=== PATIENT | female | born 1995 | race Caucasian/White ===

== ENCOUNTER 2019-11-01 11:48 | Emergency (ER) | payer OTHER, SELFPAY ==
[2019-11-01 11:59] VITALS: BP 129/87; PULSE 79; RESP 16; TEMP 37.1; O2SAT 98; BMI 24.9
[2019-11-01 12:19] LABS: Urine Pregnancy, HCG Qual. Negative (Negative)
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
[2019-11-01 13:43] VITALS: BP 117/80; PULSE 71; RESP 16; TEMP 36.8; O2SAT 96
== END 2019-11-01 13:46 | disposition home or self-care (01) ==
PROVIDERS: Emergency Provider Family Medicine
DX: S13.9XXA Sprain of joints and ligaments of unspecified parts of neck, initial encounter (principal); V43.52XA Car driver injured in collision with other type car in traffic accident, initial encounter; Y92.414 Local residential or business street as the place of occurrence of the external cause; S40.012A Contusion of left shoulder, initial encounter; S70.02XA Contusion of left hip, initial encounter; S70.01XA Contusion of right hip, initial encounter; F17.210 Nicotine dependence, cigarettes, uncomplicated
CPT/HCPCS: 70450; 70486; 71046; 72125; 73060; 73502; 81025; 99282

== ENCOUNTER 2020-12-13 18:15 | Emergency (ER) | payer BC, SELFPAY ==
[2020-12-13 18:30] VITALS: BP 124/92; PULSE 91; RESP 19; TEMP 36.8; O2SAT 98; BMI 25.2
--- NOTE | 2020-12-13 18:41 | HMH.EDUTC ---
[facility] [place] Disposition Clinical Impression: UTI (urinary tract infection) Qualifiers: Urinary tract infection type: site unspecified Hematuria presence: without hematuria Qualified Code(s): N39.0 - Urinary tract infection, site not specified Disposition: Home, Self-Care Condition on Discharge: Good Instructions: Urinary Tract Infection Additional Instructions: Drink plenty of fluids. Take tylenol or ibuprofen for pain or fever. Take the medications as directed. Follow up with your regular doctor. Follow up with your records management manager doctor. GO TO THE ER FOR ANY WORSENING SYMPTOMS Prescriptions: cephALEXin [cephALEXin 500mg capsule*] 500 mg PO Q6H 5 Days #20 cap Transmission Status: Received by [id number] Miconazole Nitrate [Monistat 7] 1 applicatio VG DIRECTED #1 pack Transmission Status: Received by [id number] Referrals: Provider,Referral, [Primary Care Provider] - Time of Disposition: 19:13 Medical Decision Making - Medical Records Medical records reviewed: No: I reviewed the patient's medical records. - Jesús Inquiry Pt receiving controlled substance: No Vital Signs: 12/13/20 18:30 12/13/20 19:14 Temperature 98.3 F 98.3 F Temperature Source Oral Pulse Rate 91 H Pulse Rate [Right Brachial] 91 H Respiratory Rate 19 19 Blood Pressure 124/92 H Blood Pressure [Right Arm] 124/92 H Blood Pressure Mean [Right Arm] 102 Blood Pressure Source [Right Arm] Automatic Cuff Blood Pressure Position [Right Arm] Sitting 02 Sat by Pulse Oximetry 98 Oxygen Delivery Method Room Air - Lab Data Lab results reviewed: Yes: I reviewed the patient's lab results. Lab Results 12/13/20 18:40: Urine Color Yellow, Urine Appearance Clear, Urine pH 5.5, Ur Specific [place] 1.025, Urine Protein Negative, Urine Glucose (UA) Negative, Urine Ketones Negative, Urine Blood Negative, Urine Nitrate Negative, Urine Bilirubin Negative, Urine Urobilinogen 0.2, Ur Leukocyte Esterase 1+ A Orders (Tests/Meds): ORDERS Category Date Time Status Urine Culture Stat Micro 12/13/20 18:40 Received [facility] [place] HPI - General Stated complaint: possible UTI or yeast infection Time Seen by Provider: 12/13/20 18:41 - History of Present Illness Provider Complaint: She states that for the past 2 days she has had burning while urinating. She thinks that she has a uti. She is 18 weeks . She also thinks that she has a yeast infection. She denies any abdominal pain, vaginal bleeding or discharge. - Related Data Home Medications Medication Instructions Recorded Confirmed Aspirin [Aspirin 81mg chewable 81 mg PO DAILY 12/13/20 12/13/20 tab] Previous Rx's Medication Instructions Recorded Miconazole Nitrate [Monistat 7] 1 applicatio VG DIRECTED #1 pack 12/13/20 cephALEXin [cephALEXin 500mg 500 mg PO Q6H 5 Days #20 cap 12/13/20 capsule*] Allergies Allergy/AdvReac Type Severity Reaction Status Date / Time No Known Allergies Allergy Verified 05/03/19 17:16 [facility] History - Hepatitis A Screen Attestation statement:: This patient has been screened for Hepatitis A risk factors. I have reviewed the patient's past medical history: Yes Medical History: Reports:: Asthma, Depression Other Medical History: Reports: Other (bipolar disorder) Laterality Cases: Bilateral: Tonsillectomy Amputation: No Fractures: No - Social History Smoking Status: Current every day smoker Tobacco Type: cigarettes # Packs/Day (cigarettes): 0 Alcohol Intake: former Alcohol Intake Frequency:: holidays/special occasions only Occupational Status: other - Psychiatric History Pschychiatric History:: Reports:: Depression Family Hx:: Asthma, Diabetes, Coronary Artery Disease, Hypertension, Cancer Comment: depression ROS Obtained: Yes All systems reviewed & no additional complaints - Constitutional Constitutional: Denies chills, Denies poor appetite - Genitourinary Female Genitourinary: R
[2020-12-13 18:53] LABS: Apearance,Urine Clear (Clear); Bilirubin,Urine Negative (Negative); Blood, Urine Negative (Negative); Color,Urine Yellow (Yellow); Glucose,Urine (UA) Negative (Negative); Ketones,Urine Negative (Negative); PH,Urine 5.5 (5.0-8.5); Protein,Urine Negative (Negative); Specific Gravity, Urine 1.025 (1.005-1.030); UTC Leukocyte Esterase,Urine 1+ (Negative); UTC Nitrate,Urine Negative (Negative); Urobilinogen,Urine 0.2 EU/dl (0.2)
[2020-12-13 19:14] VITALS: BP 124/92; PULSE 91; RESP 19; TEMP 36.8; O2SAT 98
== END 2020-12-13 19:18 | disposition home or self-care (01) ==
PROVIDERS: Emergency Provider Nurse Practitioner Family
DX: O23.12 Infections of bladder in pregnancy, second trimester (principal); Z3A.18 18 weeks gestation of pregnancy; J45.909 Unspecified asthma, uncomplicated
CPT/HCPCS: 81003; 87086; 87088; 87186; 99202; G0463

== ENCOUNTER 2020-12-18 20:19 | Emergency (ER) | payer BC, SELFPAY ==
[2020-12-18 20:21] VITALS: BP 131/94; PULSE 79; RESP 18; TEMP 36.9; O2SAT 99; BMI 26.6
[2020-12-18 20:27] VITALS: BP 131/94; PULSE 68; RESP 18; TEMP 36.9; O2SAT 97; BMI 26.7
--- NOTE | 2020-12-18 20:48 | HMH.EDGENADL ---
ED Disposition Clinical Impression: Toothache Disposition: Home, Self-Care Condition on Discharge: Good Additional Instructions: Please follow-up with your dentist tomorrow as recommended by her dentist. Please use dental balls as needed for comfort. May continue to take Tylenol as needed for pain relief. Referrals: Provider,Referral, [Primary Care Provider] - - Critical Care Critical Care Time: No Attestation: On 12/18/20, the high probability of a clinically significant, sudden or life threatening deterioration of the following system(s) required my full and direct attention, intervention and personal management. The time I documented below is in addition to time spent performing reported procedures but includes the following listed in this critical care notation. Medical Decision Making - Medical Records Medical records reviewed: Yes: I reviewed the patient's medical records. - Jesús Inquiry Pt receiving controlled substance: No Vital Signs: 12/18/20 20:21 12/18/20 20:27 Temperature 98.4 F 98.4 F Temperature Source Oral Oral Pulse Rate 68 Pulse Rate [Right] 79 Respiratory Rate 18 18 Blood Pressure 131/94 H Blood Pressure [Right Arm] 131/94 H Blood Pressure Mean [Right Arm] 106 Blood Pressure Source Automatic Cuff Blood Pressure Source [Right Arm] Automatic Cuff Blood Pressure Position Sitting 02 Sat by Pulse Oximetry 99 97 Oxygen Delivery Method Room Air Room Air Orders (Tests/Meds): ED MEDICATIONS Generic Name Dose Route Start Last Admin Trade Name Freq PRN Reason Stop Dose Admin Benzocaine/Butamben/Tetracaine HCl 1 gm 12/18/20 21:02 12/18/20 21:03 Tetracaine/Benzocaine/Butamben 56 Gm Tyler TP 01/17/21 21:01 1 gm NEEDED PRN Administration Toothache Discontinued Medications Generic Name Dose Route Start Last Admin Trade Name Freq PRN Reason Stop Dose Admin Lidocaine HCl 15 ml 12/18/20 20:47 12/18/20 21:03 Lidocaine 2% Viscous Samina 15ml Udc PO 12/18/20 20:48 15 ml ONCE ONE Administration Medical Decision Narrative: Upon presentation, patient is hemodynamically stable and nontoxic appearing. Patient presents with dental pain after recent dental procedure. Ddx includes but is not limited to post procedure pain, facial cellulitis, facial abscess. On physical exam, patient does not have erythema or edema to the skin to suggest infection. A dental ball was applied for symptomatic management. Upon reassessment, patient states she feels better and she was discharged in stable condition. General Adult HPI - General Chief complaint: Dental/Oral Stated complaint: 18 WK Preg Dental Pain Time Seen by Provider: 12/18/20 20:45 Mode of Arrival: Family Vehicle Source of Information: Patient Limitations: No Limitations Description of Symptoms (Recalled from ER Triage Doc. by RN): Pt has dental work yesterday (12/17) to take out old fillings to Left upper molars, prior to placement of crowns. She is 18wk and reports she has gestational gingivitis. Pt denies any N/V/D, fever, or chills. She has been battling this pain for a few days but it has worsened this evening and she can't take it anymore. Pt has been using Extra stregnth Tylenol (last dose at 1600) and extra stregnth oragel without relief. Pt saw Dr. Torrez for the dental work, and tried to call/text him without any response. Pt's OBGYN is Dr. Galvez with [facility]. - History of Present Illness HPI narrative: Patient is a 25yo female at 18weeks gestation presenting with severe left molar pain after dental procedure. Pt has dental work yesterday (12/17) to take out old fillings to Left upper molars, prior to placement of crowns. She has gestational gingivitis. She has been battling this pain for a few days but it has worsened this evening and she can't take it anymore. Pt has been using Extra stregnth Tylenol (last dose at 1600) and extra stregnth oragel without relief.Pt denies
[2020-12-18 21:22] VITALS: BP 113/72; PULSE 68; RESP 16; TEMP 36.9; O2SAT 100
== END 2020-12-18 21:28 | disposition home or self-care (01) ==
PROVIDERS: Emergency Provider Emergency Medicine
DX: K05.00 Acute gingivitis, plaque induced (principal); J45.909 Unspecified asthma, uncomplicated; Z3A.18 18 weeks gestation of pregnancy
CPT/HCPCS: 99281

== ENCOUNTER → 2021-07-21 15:53 | Outpatient (CLI) | payer BC, SELFPAY ==
[2021-07-21 19:04] LABS: Basophils # 0.1 K/mm3 (0-0.2); Basophils % 1.6 % (0.1-2.0); Eosinophils % 0.8 % (0.1-12.0); Hematocrit 47.5 % (37.0-47.0); Hemoglobin 15.5 g/dL (12.2-16.2); Lymphocytes # 1.7 K/mm3 (0.7-4.5); Lymphocytes % 33.8 % (10-50); Mean Corpuscular HGB Conc 32.6 g/dL (31.8-35.4); Mean Corpuscular Hemoglobin 31.6 pg (27.0-31.2); Mean Corpuscular Volume 97.1 fl (81-99); Mean Platelet Volume 8.9 fl (7.4-10.4); Monocytes # 0.3 K/mm3 (0.1-1.0); Monocytes % 4.9 % (1.7-9.3); Platelet Count 301 K/mm3 (142-424); Red Blood Count 4.89 M/mm3 (4.20-5.40); Red Cell Distribution Width 13.2 % (11.5-17.5); White Blood Count 5.1 K/mm3 (4.8-10.8)
[2021-07-21 20:13] LABS: Alanine Aminotransferase 18 U/L (12-78); Albumin Level 5.1 g/dl (3.5-5.0); Albumin/Globulin Ratio 2.3 (1.1-1.8); Alkaline Phosphatase 105 U/L (38-126); Anion Gap 17.6 mEq/L (5-15); Aspartate Amino Transferase 23 U/L (14-36); Bilirubin,Total 0.2 mg/dl (0.2-1.3); Blood Urea Nitrogen 10 mg/dl (7-17); Carbon Dioxide 25 mmol/L (22.0-30.0); Chloride 100 mmol/L (98-107); Chol/HDL Ratio 3.1 (1-3.5); Cholesterol 191 mg/dl (140-200); Estimated Glomerular Filt Rate 100 ml/min (>60); GFR (African American) 121 ML/MIN (>60); Globulin 2.2 g/dL (1.3-3.2); Glucose 78 mg/dl (74-100); HDL Cholesterol 62 mg/dl (40-60); Potassium 4.6 mmoL/L (3.5-5.1); Sodium 138 mmol/L (136-145); Total Protein,Serum 7.3 g/dl (6.3-8.2); Triglycerides 119 mg/dl (30-150); VLDL Cholesterol 24 mg/dL (0-40)
[2021-07-21 20:24] LABS: Direct LDL Cholesterol 103.48 mg/dL (100-129)
[2021-07-21 20:32] LABS: 25-OH Vitamin D, Total 45.5 ng/mL (30-100)
[2021-07-21 20:44] LABS: Thyroid Stimulating Hormone 1.81 uIU/mL (0.465-4.68)
== END ==
PROVIDERS: Visit Provider Physician Assistant
DX: R01.1 Cardiac murmur, unspecified (principal); R42 Dizziness and giddiness; Z86.79 Personal history of other diseases of the circulatory system
CPT/HCPCS: 80053; 80061; 82306; 84439; 84443; 85025

== ENCOUNTER 2021-12-02 13:27 | Emergency (ER) | payer BC, SELFPAY ==
[2021-12-02 13:40] VITALS: BP 141/91; PULSE 84; RESP 19; TEMP 36.7; O2SAT 99; BMI 21.9
[2021-12-02 13:54] LABS: Strep Scrn Group A (Rapid) Negative (Negative)
--- NOTE | 2021-12-02 14:01 | HMH.EDUTC ---
[facility] [place] Clinical Impression: URI (upper respiratory infection) Qualifiers: URI type: unspecified URI Qualified Code(s): J06.9 - Acute upper respiratory infection, unspecified Disposition: Home, Self-Care Condition on Discharge: Good Instructions: Sore Throat, Sinusitis, DI for Sinusitis Additional Instructions: *Monitor Temp, Over the counter Motrin or Tylenol as directed/as needed Tylenol every 4 hours and Motrin every 6 hours (as long as your family doctor has told you that you can take it) for fever or pain. and straight to ER if unable to lower temp less than 101.0 after medication given *Warm salt water gargles may help to soothe the throat *Throat Lozenges *Warm fluids like tea with honey may help to soothe the throat *Sleep elevated *Humidifier/Vaporizer Your throat swab was sent for culture. Those results are typically sent to your primary care. Be sure to follow up in 2-3 days with your family doctor/primary care physician if no improvement so they can review those result and treat if necessary. If you don?t have a primary care doctor, I recommend you get one but in the mean time, you will have to return to a walk in clinic Follow up IMMEDIATELY for new or worsening symptoms or no Noticeable improvement over the next 48-72 hours. 911 for difficulty breathing or swallowing Prescriptions: Fluticasone Propionate [Flonase 50mcg nasal spray 16gm] 1 spr NS DAILY #1 each Transmission Status: Pending to [facility] Cefdinir [Omnicef 300mg Capsule] 300 mg PO BID #20 cap Transmission Status: Received by [id number] Referrals: Provider,Referral, [Primary Care Provider] - As needed Time of Disposition: 14:17 Medical Decision Making - Jesús Inquiry Pt receiving controlled substance: No Jesús was queried for this patient: No Vital Signs: 12/02/21 13:40 Temperature 98.1 F Temperature Source Oral Pulse Rate [Right Brachial] 84 Respiratory Rate 19 Blood Pressure [Right Arm] 141/91 H Blood Pressure Mean [Right Arm] 107 Blood Pressure Source [Right Arm] Automatic Cuff Blood Pressure Position [Right Arm] Sitting 02 Sat by Pulse Oximetry 99 Oxygen Delivery Method Room Air - Lab Data Lab results reviewed: Yes: I reviewed the patient's lab results. Lab Results 12/02/21 13:38: Group A Strep Rapid Negative Orders (Tests/Meds): ORDERS Category Date Time Status Strep Screen Confirmation Stat Micro 12/02/21 13:38 Received [facility] [place] HPI - General Stated complaint: sore throat, cough Time Seen by Provider: 12/02/21 14:01 Mode of Arrival: Ambulatory Source of Information: Patient Limitations: No Limitations Description of Symptoms (Recalled from Triage Doc. by RN): PATIENT C/O SORE THROAT, COUGH AND EAR PAIN X 3 DAYS HEENT Symptoms (Recalled from RN notes): Yes Resp Symptoms (Recalled from RN notes): Yes Skin Symptoms (Recalled from RN notes): No MS Symptoms (Recalled from RN notes): No Functional Status (Recalled from RN notes): WNL - History of Present Illness Provider Complaint: Patient states that she has been having sore throat, pain in her ears, sinus congestion and drainage States thats that today she was feeling worse so she came in to get checked - Related Data Home Medications Medication Instructions Recorded Confirmed buspirone 15 mg tablet 15 mg PO BID 07/21/21 07/21/21 Previous Rx's Medication Instructions Recorded Cefdinir [Omnicef 300mg Capsule] 300 mg PO BID #20 cap 12/02/21 Fluticasone Propionate [Flonase 1 spr NS DAILY #1 each 12/02/21 50mcg nasal spray 16gm] Allergies Allergy/AdvReac Type Severity Reaction Status Date / Time No Known Allergies Allergy Verified 07/21/21 11:21 - Worker's Comp Is this a Worker's Comp case?: No [facility] History - Hepatitis A Screen Attestation statement:: This patient has been screened for Hepatitis A risk factors. I have reviewed the patient's past medical history: Yes Medical H
[2021-12-02 14:32] VITALS: BP 141/91; PULSE 84; RESP 19; TEMP 36.7; O2SAT 99
== END 2021-12-02 14:37 | disposition home or self-care (01) ==
PROVIDERS: Emergency Provider Nurse Practitioner
DX: J06.9 Acute upper respiratory infection, unspecified (principal)
CPT/HCPCS: 87430; 99212; G0463

== ENCOUNTER → 2021-12-10 14:53 | Outpatient (CLI) | payer BC, SELFPAY ==
[2021-12-10 13:44] LABS: Adenovirus,PCR Not Detected (NotDetected); Bordetella Pertussis Not Detected (NotDetected); Chlamydophila Pneumoniae, PCR Not Detected (NotDetected); Coronavirus 229E Not Detected (NotDetected); Coronavirus NL63 Not Detected (NotDetected); Coronavirus OC43 Not Detected (NotDetected); Coronovirus HKU1,PCR Not Detected (NotDetected); Human Metapneumovirus Not Detected (NotDetected); Influenza A, PCR Not Detected (NotDetected); Influenza AH1, 2009 Not Detected (NotDetected); Influenza AH1, PCR Not Detected (NotDetected); Influenza AH3,PCR Not Detected (NotDetected); Influenza B, PCR Not Detected (NotDetected); Mycoplasma Pneumoniae, PCR Not Detected (NotDetected); Parainfluenza 1, PCR Not Detected (NotDetected); Parainfluenza 2, PCR Not Detected (NotDetected); Parainfluenza 3, PCR Not Detected (NotDetected); Parainfluenza 4, PCR Not Detected (NotDetected); Respiratory Syncytial Virus Not Detected (NotDetected); Rhinovirus/Enterovirus Not Detected (NotDetected)
== END ==
PROVIDERS: PCP Physician Assistant; Visit Provider Physician Assistant
DX: J02.9 Acute pharyngitis, unspecified (principal); R05.9 Cough, unspecified; Z86.16 Personal history of COVID-19
CPT/HCPCS: 87070; 87486; 87581; 87632; 87798

== ENCOUNTER → 2021-12-18 09:49 | Outpatient (CLI) | payer BC, SELFPAY ==
--- NOTE | 2021-12-18 09:50 | CA_ITS ---
APPROVED REPORT EXAM: Comprehensive 2D, Doppler, and color-flow Echocardiogram Director [employer]: Loraine Núñez, RCS, RVS Ht: 5 ft 8 in Wt: 123lbs BSA: 1.66 BP: 110/70 mmHg Indications: Hx-Covid, Hx- rheumatic fever in chiildhood, murmur 2D Dimensions IVSd 0.80 cm F: 0.6-1.0 LVEF (Visual) 63.40 % PWd 0.83 cm F: 0.6 - 1.0 LA Volume 26.10 mL LVDd 4.34 cm F: 3.9 - 5.3 LA Volume Index [id number] mL/m2 (M/F) 16-34 LVDs 2.86 cm F: 2.2 - 3.5 Aortic Root 2.85 cm F: 2.7 - 3.3 Left Atrium 2.13 cm F: 2.7 - 3.8 LVOT 2.00 cm (M/F) 1.5-2.5 M-Mode Dimensions LA Diam 2.65 cm (1.9-4.0) Ao Diam 2.74 cm (2.0-3.7) EPSs 0.25 cm LV Diastology E Decel Time 180.00 (160-240 msec) E/A Ratio 1.19 MED E' 9.30 (< 7 cm/sec) MED A' 6.80 cm/s E'/MED E' Ratio 6.59 (>14) LAT E' 11.50 (<10 cm/sec) LAT A' 8.20 cm/s E/LAT E' Ratio 5.33 (>14) Aortic Valve LVOT Max 111.00 (70-110 cm/s) LVOT VTI 18.89 cm AoV Peak Josh. 137.00 (50-130 cm/s) AO Peak GR. 7.50 mmHg AO Mean GR. 3.70 (<5 mmHg) AO VTI 21.94 (18-25 cm) KHUSHBU (VTI) 2.70 (2.5-4.5 cm2) Mitral Valve MV A Velocity 51.00 (40-130 cm/s) E/A Ratio 1.19 MV Decel. Time 180.00 (160-240 ms) Pulmonary Valve PV Peak Velocity 99.00 (50-150 cm/s) Tricuspid Valve TR P. Velocity 190.00 cm/s Left Ventricle Left atrium normal size, left ventricle is normal size, there is no concentric left ventricular hypertrophy, estimated ejection fraction 55% with no regional wall motion abnormality, diastolic parameters are within normal range. Right Ventricle Right atrium and right ventricle are normal size and contractility. Aortic Valve Aortic valve is grossly normal, there is no aortic stenosis or aortic insufficiency. Mitral Valve Mitral valve grossly normal, there is trace mitral regurgitation. Tricuspid Valve Tricuspid valve grossly normal, there is trace tricuspid regurgitation, tricuspid rotation jet velocity is inadequate for calculation of the right ventricular systolic pressure. Pulmonic Valve Pulmonic valve is poorly visualized. Great Vessels Aortic root is normal size. Inferior vena cava normal 7 normal inspiratory collapse. Pericardium No significant pericardial effusion noted. Conclusion 1. Normal left ventricular size, preserved left ventricular systolic function, estimated ejection fraction 55% with no regional wall motion abnormality, diastolic parameters are within normal range. 2. Trace mitral and tricuspid regurgitation. 3. No significant pericardial effusion. 4. Inferior vena cava normal 7 normal inspiratory collapse. Electronically signed by : Paolo Yancey MD 12/19/2021 15:20:55
== END ==
LOC: RT 09:50
PROVIDERS: PCP Physician Assistant; Visit Provider Physician Assistant
DX: R00.2 Palpitations (principal); Z86.79 Personal history of other diseases of the circulatory system; R06.00 Dyspnea, unspecified; R42 Dizziness and giddiness
CPT/HCPCS: 93306

== ENCOUNTER → 2021-12-22 15:18 | Outpatient (CLI) | payer BC, SELFPAY | LOC: RT 15:19 | PROVIDERS: PCP Physician Assistant; Visit Provider Physician Assistant | DX: R00.2 Palpitations (principal) | CPT/HCPCS: 93225; 93226 ==

== ENCOUNTER 2023-11-27 16:06 | Emergency (ER) | payer BC, SELFPAY ==
[2023-11-27 16:50] VITALS: BP 149/98; PULSE 89; RESP 18; TEMP 36.6; O2SAT 99; BMI 28.8
--- NOTE | 2023-11-27 16:55 | ED_ITS ---
Discharge Plan Disposition Patient Disposition: Home, Self-Care Condition: Good Prescriptions Prescriptions: New azithromycin [Zithromax] 250 mg tablet 250 mg PO UD DOSE PK Qty: 6 0RF Rx Instructions: Take two (2) tablets today, then one (1) tablet days #2 thru #5 acyclovir 5 % cream 1 applic topical Q4H 7 Days Qty: 5 0RF acyclovir 400 mg tablet 400 mg PO TID 7 Days Qty: 21 0RF No Action buspirone 15 mg tablet 15 mg PO BID 1 mg Tablet 1 tab PO DAILY Referrals Follow up/Referrals: Rosemary Kiran PA [Primary Care Provider] - See instructions Activity Restrictions/Add. Instructions Additional Instructions/Restrictions: Drink plenty of fluids. Take tylenol for pain or fever. Take the medications as directed. Follow up with your regular doctor. GO TO THE ER FOR ANY WORSENING SYMPTOMS Clinical Impressions Clinical Impression: Acute bronchitis, Fever blister Instructions Patient Instructions: Acyclovir Topical, Azithromycin Discharge ED Provider: Kevon Irene [facility] General Stated complaint: congestion,cold sores,cough Time Seen by Provider: 11/27/23 16:55 Related Data Home Medications Medication Instructions Recorded Confirmed buspirone 15 mg tablet 15 mg PO BID 07/21/21 11/27/23 [id number] 1 mg 1 tab PO DAILY 11/27/23 11/27/23 tablet Previous Rx's Medication Instructions Recorded acyclovir 5 % topical cream 1 applic topical Q4H 7 days #5 11/27/23 grams azithromycin 250 mg tablet 250 mg PO UD DOSE PK #6 tabs 11/27/23 (Zithromax) acyclovir 400 mg tablet 400 mg PO TID 7 days #21 tabs 11/28/23 Allergies Allergy/AdvReac Type Severity Reaction Status Date / Time No Known Allergies Allergy Verified 11/27/23 16:58 [facility] Disclaimer: The information contained in this section may have been updated after the p atient was seen, as this information can be updated by other users. Medical History (Updated 11/27/23 @ 17:38 by Kevon Irene APRN) History of rheumatic fever as a child Heart murmur anxiety Social History Smoking Status: Former smoker tobacco type: cigarettes packs per day: 0 alcohol intake: never current occupational status: other Travel in the last 8 weeks: Inside the [place] ROS Obtained: Yes All systems reviewed & no additional complaints except as documented Constitutional Constitutional: Reports chills and Reports fever(s) Eyes Eyes: Denies eye discharge ENT Ears, Nose, Mouth, and Throat: Reports as per HPI Cardiovascular Cardiovascular: Denies chest pain Respiratory Respiratory: Denies chest congestion and Reports cough Gastrointestinal Gastrointestingal: Reports nausea; Denies abdominal pain, constipation, cramping, diarrhea or vomiting Musculoskeletal Musculoskeletal: Denies arthralgias Integumentary/Breasts Skin/Breast: Denies rash Neurologic Neurologic: Denies paresthesias Physical Exam General General appearance: alert and in no apparent distress Eye Eye exam: Present normal appearance, PERRL and EOMI ENT ENT exam: Present mucous membranes moist and normal external ear exam Expanded ENT Exam External ear exam: Present normal external inspection TM/Canal exam: Bilateral TM: erythema and bulging Nose exam: Absent sinus tenderness Nasal speculum exam: Bilateral: normal Mouth exam: Present normal external inspection; Absent drooling Teeth exam: Present normal inspection Throat exam: Present tonsillar erythema and tonsillomegaly Neck Neck exam: Present normal inspection, full ROM and trachea midline; Absent tenderness, lymphadenopathy or thyromegaly Chest Chest inspection: Present normal inspection and symmetric chest wall rise; Abs ent tenderness or rash Respiratory Respiratory exam: Present normal lung sounds bilaterally; Absent respiratory distress, wheezes, stridor or accessory muscle use Cardiovascular Cardiovascular exam: Present regular rate, normal rhythm and normal heart sounds Abdominal Exam Abdominal exam: Present soft; Absent distention, tenderness, guarding, rebound or rigidity Extremities Exam Extremities exam: Present normal inspection, full ROM and normal capillary refill; Absent tenderness or calf tenderness Back Exam Back exam: Present normal inspection and full ROM; Absent tenderness Neurological Exam Neurological exam: Present alert and oriented X3 Psychiatric Psychiatric exam: Present normal affect and normal mood Skin Skin exam: Present warm, dry, intact and normal color Lymphatic Lymphatic Findings: no adenopathy Medical Decision Making Medical Records Medical records reviewed: No I reviewed the patient's medical records. Jesús Inquiry Pt receiving controlled substance: No
--- NOTE | 2023-11-27 17:44 | PC.NURSE ---
Sent full panel to lab via tube system
[2023-11-27 17:45] VITALS: BP 149/98; PULSE 89; RESP 18; TEMP 36.6; O2SAT 99
[2023-11-27 17:47] LABS: Adenovirus,PCR Not Detected (NotDetected); Bordetella Pertussis Not Detected (NotDetected); Chlamydophila Pneumoniae, PCR Not Detected (NotDetected); Coronavirus 19, PCR Not Detected (NotDetected); Coronavirus 229E Not Detected (NotDetected); Coronavirus NL63 Not Detected (NotDetected); Coronavirus OC43 Not Detected (NotDetected); Coronovirus HKU1,PCR Not Detected (NotDetected); Human Metapneumovirus Not Detected (NotDetected); Influenza A, PCR Not Detected (NotDetected); Influenza AH1, 2009 Not Detected (NotDetected); Influenza AH1, PCR Not Detected (NotDetected); Influenza AH3,PCR Not Detected (NotDetected); Influenza B, PCR Not Detected (NotDetected); Mycoplasma Pneumoniae, PCR Not Detected (NotDetected); Parainfluenza 1, PCR Not Detected (NotDetected); Parainfluenza 2, PCR Not Detected (NotDetected); Parainfluenza 3, PCR Not Detected (NotDetected); Parainfluenza 4, PCR Not Detected (NotDetected); Respiratory Syncytial Virus Not Detected (NotDetected)
[2023-11-27 20:49] LABS: Rhinovirus/Enterovirus Detected (NotDetected)
== END 2023-11-27 17:45 | disposition home or self-care (01) ==
PROVIDERS: Emergency Provider Nurse Practitioner Family; PCP Physician Assistant
DX: J20.9 Acute bronchitis, unspecified; B34.1 Enterovirus infection, unspecified; B00.1 Herpesviral vesicular dermatitis; R09.81 Nasal congestion
CPT/HCPCS: 87581; 87632; 87635; 87798; 99212; 99214; G0463

== ENCOUNTER 2024-02-01 16:59 | Outpatient (CLI) | payer BC, SELFPAY ==
[2024-02-01 16:56] LABS: Basophils # 0.1 K/mm3 (0-0.2); Basophils % 0.9 % (0.1-2.0); Eosinophils % 0.4 % (0.1-12.0); Hematocrit 44.4 % (37.0-47.0); Hemoglobin 15.4 g/dL (12.2-16.2); Lymphocytes # 1.9 K/mm3 (0.7-4.5); Lymphocytes % 34.7 % (10-50); Mean Corpuscular HGB Conc 34.6 g/dL (31.8-35.4); Mean Corpuscular Hemoglobin 32.4 pg (27.0-31.2); Mean Corpuscular Volume 93.6 fl (81-99); Mean Platelet Volume 8.1 fl (7.4-10.4); Monocytes # 0.3 K/mm3 (0.1-1.0); Monocytes % 5.4 % (1.7-9.3); Neutrophils # 3.1 K/mm3 (1.8-7.8); Neutrophils % 58.7 % (37.0-80.0); Platelet Count 305 K/mm3 (142-424); Red Blood Count 4.74 M/mm3 (4.20-5.40); Red Cell Distribution Width 13.5 % (11.5-17.5); White Blood Count 5.3 K/mm3 (4.8-10.8)
[2024-02-01 17:29] LABS: HCG Qualitative, Serum Negative (Negative)
[2024-02-01 17:38] LABS: Hemoglobin A1C 5.5 % (4.0-6.0)
[2024-02-01 17:43] LABS: Alanine Aminotransferase 18 U/L (12-78); Albumin Level 4.6 g/dl (3.5-5.0); Albumin/Globulin Ratio 1.8 (1.1-1.8); Alkaline Phosphatase 100 U/L (38-126); Aspartate Amino Transferase 22 U/L (14-36); Bilirubin,Total 0.4 mg/dl (0.2-1.3); Blood Urea Nitrogen 12 mg/dl (7-17); Calcium 9.9 mg/dl (8.4-10.2); Carbon Dioxide 25 mmol/L (22.0-30.0); Chloride 103 mmol/L (98-107); Chol/HDL Ratio 3.1 (1-3.5); Cholesterol 228 mg/dl (140-200); Estimated Glomerular Filt Rate 117 ml/min (>60); GFR (African American) 141 ML/MIN (>60); Globulin 2.6 g/dL (1.3-3.2); Glucose 84 mg/dl (74-100); HDL Cholesterol 73 mg/dl (40-60); Sodium 137 mmol/L (136-145); Total Protein,Serum 7.2 g/dl (6.3-8.2); Triglycerides 185 mg/dl (30-150); VLDL Cholesterol 37 mg/dL (0-40)
[2024-02-01 17:52] LABS: 25-OH Vitamin D, Total 46.6 ng/mL (30-100)
[2024-02-01 17:58] LABS: Free Thyroxine Index 2.1 ug/dL (5.93-13.13); T4 (Thyroxine) 7.4 ug/dl (5.53-11.0); Triiodothryronine (T3) Uptake 29 % (23.5-40.5)
[2024-02-01 18:12] LABS: Thyroid Stimulating Hormone 0.63 uIU/mL (0.465-4.68)
[2024-02-03 08:21] LABS: FSH 5.8 mIU/mL (.); LH 11.4 mIU/mL (.); Progesterone 0.1 ng/mL (.)
[2024-02-08 16:38] LABS: Estrogen 136 pg/mL (.)
== END 2024-02-01 23:59 | disposition home or self-care (01) ==
LOC: LAB.DROPOF 16:59
PROVIDERS: PCP Physician Assistant; Visit Provider Physician Assistant
DX: N91.2 Amenorrhea, unspecified; Z68.28 Body mass index [BMI] 28.0-28.9, adult
CPT/HCPCS: 80050; 80053; 80061; 82306; 82672; 83001; 83002; 83036; 84144; 84436; 84443; 84479; 84703; 85025

== ENCOUNTER 2024-03-02 16:47 | Outpatient (CLI) | payer BC, SELFPAY ==
[2024-03-03 17:30] LABS: Free Thyroxine Index 2.1 ug/dL (5.93-13.13); T4 (Thyroxine) 7.1 ug/dl (5.53-11.0); Triiodothryronine (T3) Uptake 29 % (23.5-40.5)
[2024-03-03 17:44] LABS: Thyroid Stimulating Hormone 0.73 uIU/mL (0.465-4.68)
[2024-03-05 06:54] LABS: Thyroid Peroxidase Antibodies <9 IU/mL (0-34)
[2024-03-08 06:21] LABS: Thyroid Stimulating Immunoglob <0.10 IU/L (0.00-0.55)
== END 2024-03-02 23:59 | disposition home or self-care (01) ==
LOC: LAB.DROPOF 03-03 16:48
PROVIDERS: PCP Physician Assistant; Visit Provider Physician Assistant
DX: R53.83 Other fatigue (principal)
CPT/HCPCS: 84436; 84443; 84445; 84479; 86376

== ENCOUNTER 2025-05-14 14:15 | Outpatient (CLI) | payer BC, SELFPAY ==
[2025-05-14 16:34] LABS: Thyroid Stimulating Hormone 0.81 uIU/mL (0.465-4.68)
== END 2025-05-14 23:59 | disposition home or self-care (01) ==
LOC: LAB 14:15
PROVIDERS: PCP Physician Assistant; Visit Provider Obstetrics & Gynecology
DX: N93.9 Abnormal uterine and vaginal bleeding, unspecified (principal)
CPT/HCPCS: 36415; 84443

== ENCOUNTER 2025-05-18 10:32 | Outpatient (CLI) | payer BC, SELFPAY ==
--- OUTSIDE RECORDS SUMMARY | 2024-09-30 16:30 | XMS_ITS ---
Author Organization Mercedes FOSTER PE D JOEL Address [address] [facility] [address] [facility] [address] [place] [address] Care Team Providers Care Vice President Network Development Name Role Phone Evens Batista Primary Care Provider McValeria Leigh Unavailable [phone] Evens Batista Unavailable Unavailable Migration, Provider Unavailable Unavailable [facility] Conversion Encounter Medications Medication SIG (Take, Route, Frequency, Duration) Notes Start Date End Date Status BUSPAR 10MG 1TAB QHS; Duration: 30DAYS *Please review for potential replacement for e-prescription and drug interaction check* Active ALBUTEROL (EQV-PROVENTIL HFA) 90 MCG/INH 2 PUFF(S) INHALED EVERY 6 HOURS; Duration: 30 DAY(S) *Please review for potential replacement for e-prescription and drug interaction check* 11/10/2021 Active Encounters Encounter Location Date Provider Diagnosis Mercedes BRUNO JOEL [address] [facility] [address] [facility] [address] [place] [address] 09/30/2024 Provider Migration Plan Of Treatment Medication Medication Name Sig Start Date Stop Date Notes ALBUTEROL (EQV-PROVENTIL HFA) 90 MCG/INH 2 PUFF(S) INHALED EVERY 6 HOURS; Duration: 30 DAY(S) 11/10/2021 *Please review for potential replacement for e-prescription and drug interaction check* Progress Notes * Tesha WINTERDOB:1995 (30 yo F)Acc No.[id number]:09/30/2024 Patient: Tesha ARANDA Provider: Vilma Coe :1995 A ge:29 Y S ex:Female Date:09/30/2024 Address:[facility] [address], [id number] Pcp:Evens Batista Subjective: * Chief Complaints: * 1 . [facility] To [facility] Conversion Encounter. * Medical History: * Medications: T aking BUSPAR 10MG 1TAB QHS , Notes to Pharmacist: *Please review for potential replacement for e-prescription and drug interaction check* Objective: * Vitals: Assessment: Plan: * Treatment: * * Electronic signature of Prov ider Migration on 05/18/2025 at 10:33 AM EST Sign off status: Pending * Provider: Vilma Coe Date: 0 09/30/2024 Generated for Tan olguin/Leanna/Naresh on: 1 07/18/2024 10:33 AM EST
--- NOTE | 2025-05-18 10:30 | US_ITS ---
PROCEDURE: US TRANSVAGINAL CLINICAL INDICATION: AUB and pelvic pain COMPARISON: No exams were available for comparison FINDINGS: Transvaginal sonographic images of the pelvis were obtained. UTERUS: 9.9 cm x 6cmx 5cm anteverted with a combined endometrial thickness of 6.7mm. There appears to be increased vascularity around the periphery of the fundus of the uterus. LEFT OVARY: 2dxc2doe6.6cm with a volume of 15.5ml. There are multiple small peripheral follicles giving the ovary a polycystic appearance. RIGHT OVARY: 5cmx 5pht4qt with a volume of 33.2ml. There are multiple small peripheral follicles giving the ovary a polycystic appearance. There is a 2.1 cm collapsing follicle that is likely a corpus luteum Both ovaries are seen and appear polycystic. Doppler flow to both ovaries are seen. There is no fluid in the cul-de-sac. IMPRESSION: 1. Anteverted, bulky uterus. The endometrium appears normal. There is increased vascularity around the periphery of the uterus. 2. Both ovaries are seen and are polycystic. There is a corpus luteum in the right ovary. 3. No fluid in cul-de-sac. Dictated by: Karlos Scott MD 05/19/2025 07:43 Karlos Sctot MD in OV 05/19/2025 07:43
--- OUTSIDE RECORDS SUMMARY | 2025-05-18 10:34 | XMS_ITS | Patient Health Record ---
Author Organization Mercedes FOSTER PE D JOEL Address [address] [place] [address] [facility] [address] [place] [address] Care Team Providers Care Gritting Machine Operator Name Role Phone Evens Batista Primary Care Provider [phone] McNeKalyani sandhui Unavailable [phone] Evens Batista Unavailable Unavailable Migration, Provider Unavailable Unavailable Allergies No Known Allergies Reason For Referral No Information Medications Medication SIG (Take, Route, Frequency, Duration) Notes Start Date End Date Status BUSPAR 10MG 1TAB QHS; Duration: 30DAYS *Please review for potential replacement for e-prescription and drug interaction check* Active ALBUTEROL (EQV-PROVENTIL HFA) 90 MCG/INH 2 PUFF(S) INHALED EVERY 6 HOURS; Duration: 30 DAY(S) *Please review for potential replacement for e-prescription and drug interaction check* 11/10/2021 Active Social History Tobacco Use: Social History Observation Description Date Details (start date - stop date) Former Smoker NA - NA Smoking: Question Answer Notes Are you a: former smoker How long has it been since you last smoked? 1-5 years Encounters Encounter Location Date Provider Diagnosis Mercedes FOSTER PED JOEL [address] [facility] [address] [place] [address] 09/30/2024 Provider Migration Plan Of Treatment No Information Insurance Providers Payer Name Payer Address Payer Phone Subscriber Number Group Number Insured Name Patient Relationship to Insured Coverage Start Date [facility]age End Date [facility] [id number] [place] [id number] Tesha Hampton Self - patient is the insured Medical (General) History Medical History History ICD Code Anxiety Bi Polar Surgical History Surgery Date(Month/Year) Tonsillectomy 2002 Hospitalization History Reason Date(Month/Year) Childbirth x 3
--- OUTSIDE RECORDS SUMMARY | 2025-05-18 10:34 | XMS_ITS | Clinical Summary ---
Author Organization [facility] Address [address] [place] [address] Care Team Providers Care Casting Supervisor Name Role Phone Rosemary Kiran Primary Care Provider [phone] Allergies No known active allergies Medications busPIRone (Buspar) 15 MG tablet 02/01/2022 Active Vit-Fe Fumarate-FA (Classic ) 28-0.8 MG tablet Take 1 tablet by mouth 1 (one) time each day. Active Lysine 500 MG capsule Active sertraline (Zoloft) 50 MG tablet Take 1 tablet (50 mg) by mouth every night. 02/19/2023 Active Active Problems Problem Noted Date Diagnosed Date Polyhydramnios, antepartum complication 02/10/20 23 Supervision of high risk , antepartum 0 01/20/2023 Gestational diabetes mellitu s (GDM) in third trimester controlled on oral hypoglycemic drug 12/25/2022 BMI 32.0-32.9,adult 11/30/2022 History of hypertension 09/02/2022 History of pre-eclampsia in prior , currently 07/21/2022 Supervision of other normal , antepartu m 07/21/2022 Resolved Problems Problem Noted Date Diagnosed Date Resolved Date Rubella non-immune status, antepartum 07/27/2022 04/01/2025 Immunizations Immunization Administration Dates Next Due Tdap 02/09/2023 Family History Medical History Relation Name Comments Drug abuse Brother 1 Bipolar disorder Brother 2 No Known Problems Daughter 1 No Known Problems Daughter 2 Alcohol abuse Father Conversions - Other Father cardiova scular disease Heart attack Father Hypertension Father No Known Problems Father's Brother No Known Problems Father's Sister Heart failure Maternal Grandfather Atrial fibrillation Maternal Grandmother Depression Maternal Grandmother Hypertension Maternal Grandmother Heart disease Mother Hypertension Mother Endometriosis Mother's Sister Polycystic ovary syndrome Mother's Sister Conversions - Other Paternal Grandfather cardiovascular disease Heart attack Paternal Grandfather Breast cancer Paternal Grandmother No Known Problems Son 1 No Known Problems Son 2 Relation Name Status Comments Brother 1 Alive Brother 2 Alive Daughter 1 Alive Daughter 2 Alive Father Alive Father's Brother Alive Father's Sister Alive Maternal Grandfather Maternal Grandmother Alive Mother Alive Mother's Sister Alive Paternal Grandfather Paternal Grandmother Alive Son 1 Alive Son 2 Alive Social History Tobacco Use Types Packs/Day Years Used Date Smoking Tobacco: Former Cigarettes 0.5 10 0 08/2010 - 08/2020 Smokeless Tobacco: Former Quit: 08/2020 Tobacco Cessation:Counseling Given: Not Answered Comments:Vape Alcohol Use Standard Drinks/Week Comments Not Currently 0 (1 standard drink = 0.6 oz pur e alcohol) 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 Never 03/28/2023 PHQ-2A Answer Date Recorded Patient Health Questionnaire-2 Score 0 02/15/2023 Comments No Sex and Gender Information Value Date Recorded Sex Assigned at Not on file Legal Sex Female 8:58 PM EDT Gender Identity Not on file Sexual Orientation Not on file Last Filed Vital Signs Vital Sign Reading Time Taken Comments Blood Pressure 115/82 03/03/2023 11:10 AM EDT Pulse 79 03/03/2023 11:10 AM EDT Temperature 36.9 C (98.4 F) 03/03/2023 11:10 AM EDT Respiratory Rate 16 03/03/2023 11:10 AM EDT Oxygen Saturation 97% 03/03/2023 11:10 AM EDT Inhaled Oxygen Concentration - - Weight 75.9 kg (167 lb 5.3 oz) 03/03/2023 11:10 AM EDT Height 162.6 cm (5' 4 ) 03/03/2023 11:10 AM EDT Body Mass Index 28.72 03/03/2023 11:10 AM EDT Plan of Treatment Health Maintenance Due Date Last Done Comments [facility]-Infant/Child/Adol SDOH Screenings 1993 [facility]-Varicella Vaccines (1 of 2 - 13+ 2-dose series) 2006 [facility]- SDOH Screenings 2011 [facility]-Adult SDOH Screenings 2011 [facility]-Hepatitis B Vaccines (1 of 3 - 19+ 3-dose series) 01/09/2012 [facility]-Pneumococcal Vaccine: Pediatrics (0 to 5 Years) and At-Risk Patients (6 to 49 Years) (1 of 2 - PCV) 01/09/2012 HPV Vaccines (1 - 3-dose SCD M series) 01/09/2020 [facility]-Depression Screening 03/28/2024 023, 02/15/2023 [id number]-KHTAV-23 Vaccine (1 - season) 2025 [facility]-Influenza Vaccine (#1) 2025 04/29/2017 [facility]-Pap Smear 03/31/2026 03/31/2023 [facility]-Cervical Cancer Screening 04/12/2028 [facility]-HPV/Cotest 04/12/2028 04/12/2023, 03/31/2023 [facility]-DTaP,Tdap,and Td Vaccine s (2 - Td or Tdap) 02/09/2033 02/09/2023 [facility]-Zoster Vaccines (1 of 2) 2043 [facility]-Obesity Intervention Completed 07/08/2022 [facility]-HIV Screening Completed 07/21/2022 [facility]-Hepatitis C Screening Completed 2022, 10/15/2020 [facility]-HIB Vaccines Aged Out No longer e ligible based on patient's age to complete this topic [facility]-Hepatitis A Vaccines Aged Out No longer eligible based on patient's age to complete this topic [facility]-IPV Vaccines Aged Out No longer e ligible based on patient's age to complete this topic [facility]-Rotavirus Vaccines Aged Out No lo nger eligible based on patient's age to complete this topic Goals Goal Patient Goal Type Associated Problems Recent Progress Patient-Stated? Author Delayed Delivery Care Plan CPM S22 PP LABOR (OBSTETRICS) No Open Scheduling, Background Procedures Procedure Name Priority Date/Time Associated Diagnosis Comments HIGH RISK HUMAN PAPILLOMAVIRUS (HPV) PCR WITH GENOTYPING WITH REFLEX TO PAP Routine 04/12/2023 8:04 AM EDT Encounter for gynecological examination (general) (routine) without abnormal findings PAP TEST - CYTOLOGY Routine 03/31/2023 1 2:07 PM EDT Encounter for gynecological examination (general) (routine) without abnormal findings HEPATITIS C ANTIBODY W/REFLEX TO HCV QUANT PCR Routine 07/21/2022 11:12 AM EST test positive Missed periods HIV 1/2 ANTIBODY/ANTIGEN SCREEN WITH REFLEX TO HIV I/II DIFFERENTIATION Routine 07/21/2022 11:12 AM EST test positive Missed periods from Last 3 Months or Most Recently Relevant to Health Maintenance Results * High Risk Human Papillomavirus (HPV) PCR with Genotyping (04/12/2023 8:04 AM EDT) High Risk Human Papillomavirus (HPV) PCR Interpretation Not Detected Not Detected 04/13/2023 9:40 AM EDT [facility] High Risk Human Papillomavirus (HPV) PCR Genotype 16 Not Detected Not Detected 04/13/2023 9:40 AM EDT [facility] High Risk Human Papillomavirus (HPV) PCR Genotype 18 Result Not Detected Not Detected 04/13/2023 9:40 AM EDT [facility] (HPV) Other High Risk HPV Genotypes (Not 16 or 18) Not Detected Not Detected 04/13/2023 9:40 AM EDT [facility] Thin Prep Cervix uteri structure / Unknown 04/12/2023 8:04 AM EDT 04/12/2023 8:04 AM EDT [facility] - 04/13/2023 9:40 AM EDT This test is performed by the Daly 4800 instrument Real Time PCR HPV DNA and genotype testing. This test is FDA approved for use with cervical and endocervical specimens. This test is used for clinical purposes. It should not be regarded as investigational or for research. The test specifically identifies HPV-16 and HPV-18 while concurrently detecting the rest of the high risk types (31, 33, 35, 39, 45, 51, 52, 56, 58, 59, 66 and 68). The [facility] Clinical Microbiology Laboratory is certified under the Clinical Laboratory Improvement Amendments of 1988 (CLIA-88) as qualified to perform high complexity clinical laboratory testing. Pauline Escalante APRN, CNM LAB MICROBIOLOGY - GENERAL ORDERABLES Final Result [facility] [address] [place] [id number] * Pap Test (03/31/2023 12:07 PM EDT) Case Report Cytology Case: [id number] Authorizing Provider: Pauline Escalante APRN, Collected: 03/31/2023 1207 CNM Ordering Location: Obstetrics & Gynecology Received: 04/01/2023 0934 First Screen: Brooke Charles Specimen: ThinPrep Pap Test, Liquid-Based Cervical/Vaginal 04/06/2023 10:52 AM EDT [facility] Interpretation NEGATIVE FOR INTRAEPITHELIAL LESION OR MALIGNANCY 04/06/2023 10:52 AM EDT [facility] at 1052 EDT Specimen Adequacy Satisfactory for evaluation; endocervical/gustafson sformation zone component present. Slide imaged by the ThinPrep Imaging system and selected 22 verma reviewed then full manual screening. 04/06/2023 10:52 AM EDT [facility] Cervical cytology is a screening test primarily for squamous cancers and precursors and has associated false negative and positive results. New technologies such as liquid based sampling may decrease but will not eliminate all false negative results. Regular screening and follow-up of unexplained clinical signs and symptoms are recommended to minimize false negative results. Please see the ASCCP website (www.asccp.org)fo r followup recommendations. If HPV testing was requested, correlation with the results is suggested (please call Microbiology at [phone] for results). 04/06/2023 10:52 AM EDT [facility] Menstrual Status Post- 023 10:52 AM EDT [facility] Contraceptive History Not Applicable 04/06/2023 10:52 AM EDT [facility] Screening Type Routine Screen 2022 10:52 AM EDT [facility] High Risk? No 04/06/2023 10:52 AM EDT [facility] HPV Testing Requested? Request HPV Testing if ASCUS (Women 25 Years or Older) 04/06/2023 10:52 AM EDT [facility] Previous Cancer History No 04/06/2023 10:52 AM EDT [facility] Clinical Information Z39.2 - Routine follow-up [ICD-10-CM] 04/06/2023 10:52 AM EDT [facility] Swab Vaginal and cervical cytologic material / Unknown Non-blood Collection / Unknown 03/31/2023 12:07 PM EDT 04/01/2023 9:34 AM EDT Pauline Escalante APRN, CNM LAB CYTOLOGY ORDERA BLES Final Result Performing Organization Address [facility] Phone Number [facility] [address] [place] [address] * HIV 1 & 2 Antibody/Antigen Screen (07/21/2022 11:12 AM EST) HIV 1 & 2 Antibody/Anti gen Screen Nonreactive Nonreactive 07/21/2022 3:00 PM EST [facility] Blood Venous blood specimen / Unknown Venipuncture / Unknown 07/21/2022 11:12 AM EST 07/21/2022 2:06 PM EST Pauline Escalante APRN, CNM LAB BLOOD ORDERABLE S Final Result Performing Organization Address [facility] Co de Phone Number [facility] [address] [place] [address] * Hepatitis C Antibody (07/21/2022 11:12 AM EST) Hepatitis C Antibody Negative Negative 07/21/2022 2:47 PM EST [facility] Blood Venous blood specimen / Unknown Venipuncture / Unknown 07/21/2022 11:12 AM EST 07/21/2022 2:05 PM EST Pauline Escalante APRN, CNM LAB BLOOD ORDERABLE S Final Result [facility] [address] [place] [address] from Last 3 Months or Most Recently Relevant to Health Maintenance Additional Health Concerns Active Problems Noted Date Diagnosed Date CPM S22 PP LABOR (OBSTETRICS) 07/21/[address]22 [place] [address] ANTHEM Care Teams Casting Supervisor Relationship Specialty Start Date End Date Rosemary Kiran PA [address] [place] [address] PCP - General 09/02/22
--- OUTSIDE RECORDS SUMMARY | 2025-05-18 10:34 | XMS_ITS | Clinical Summary ---
Author Organization [facility] Address [address] [place] [address] Care Team Providers Care Technical Advisor Name Role Phone Provider, No Known Primary Care Provider Unavail able Allergies No known active allergies Medications vitamin (, CLASSIC, vitamin) tablet Take 1 tablet by mouth Daily. Active Lysine 1000 MG tablet Take 1 tablet by mouth Daily. Active busPIRone (BUSPAR) 10 MG tablet Take 10 mg by mouth 2 (two) times a day. Active ibuprofen (ADVIL,MOTRIN) 600 MG tablet Take 1 tablet by mouth Every 6 (Six) Hours As Needed for Mild Pain or Moderate Pain . 60 tablet 05/15/2021 12:14 PM EST 05/15/2021 Active busPIRone (BUSPAR) 15 MG tablet 07/07/2021 Active Active Problems Problem Noted Date Diagnosed Date Papanicolaou smear 07/09/2021 Family planning 07/09/2021 exam 07/09/2021 05/13/2021 Bipolar disease during , antepartum Overview (10/08/2020): curreently in remission off medication with on-going psychotherapy Alcoholism in remission 10/08/2020 Hx of preeclampsia, prior , currently p regnant 10/08/2020 38 weeks gestation of 10/08/2020 Immunizations Immunization Administration Dates Next Due MMR 05/15/2021() Family History Medical History Relation Name Comments Heart attack Father Hypertension Mother Breast cancer Paternal Grandmother Relation Name Status Comments Father Alive Mother Alive Paternal Grandmother Social History Tobacco Use Types Packs/Day Years Used Date Smoking Tobacco: Former Cigarettes Q uit: 09/07/2020 Smokeless Tobacco: Never Comments:quit recently Alcohol Use Standard Drinks/Week Comments Not Currently 0 (1 standard drink = 0.6 oz pur e alcohol) sober 2 years-2018 [place] Depression Scale Answer Date Recorded [place] Depression Scale Total 5 05/13/2021 The thought of harming myself has occurred to me . Never 05/13/2021 Abuse Screen Answer Date Recorded Unsafe at Home or Work/School Not on file Feels Threatened by Someone? Not on file 05/2023 Does Anyone Keep You from Co ntacting Others or Doint Things Outside the Home? Not on file 04/08/2023 Physical Sign of Abuse Present Not on file 1 Housing Stability Answer Date Recorded Current Living Arrangements Not on file 03/28 Potentially Unsafe Housing Conditions Not on niharika e 04/08/2023 Family and Community Support Answer Edgar e Recorded Help with Day-to-Day Activities Not on file 04/08/2023 Lonely or Isolated Not on file 04/08/2023 Employment Answer Date Recorded Do you want help finding or keeping work or a darrick b? Not on file 04/08/2023 Disabilities Answer Date Recorded Concentrating, Remembering, or Making Decisions Difficulty Not on file 04/08/2023 Doing Errands Independently Difficulty Not on fi le 04/08/2023 Education Answer Date Recorded Help with school or training? Not on file Preferred Language Not on file 04/08/2023 Comments No Sex and Gender Information Value Date Recorded Sex Assigned at Not on file Legal Sex Female 8:34 AM EDT Gender Identity Not on file Sexual Orientation Not on file Last Filed Vital Signs Vital Sign Reading Time Taken Comments Blood Pressure 126/87 05/15/2021 7:00 AM EST Pulse 68 05/15/2021 7:00 AM EST Temperature 36.8 C (98.2 F) 05/15/2021 7:00 AM EST Respiratory Rate 18 05/15/2021 7:00 AM EST Oxygen Saturation - - Inhaled Oxygen Concentration - - Weight 73.9 kg (163 lb) 07/09/2021 11:07 AM EST Height 162.6 cm (5' 4 ) 07/09/2021 11:07 AM EST Body Mass Index 27.98 07/09/2021 11:07 AM EST Plan of Treatment Health Maintenance Due Date Last Done Comments Annual Gynecologic Pelvic an d Breast Exam 1993 TDAP/TD VACCINES (1 - Tdap) 01/09/2012 ANNUAL PHYSICAL 10/02/2020 INFLUENZA VACCINE 01/26/2025 HEPATITIS C SCREENING Completed 10/15/2020 Pneumococcal Vaccine 0-49 Aged Out No longer eligible based on patient's age to complete this topic Procedures Procedure Name Priority Date/Time Associated Diagnosis Comments HEPATITIS C ANTIBODY Routine 10/15/2020 10:45 AM EDT Supervision of high risk , antepartum from Last 3 Months or Most Recently Relevant to Health Maintenance Results * Hepatitis C Antibody (10/15/2020 10:45 AM EDT) Hepatitis C Ab Non-Reacti ve Non-Reacti ve 10/15/2020 3:00 PM EDT [facility] Blood Venipuncture / Unknown 10/15/2020 10:45 AM EDT 10/15/2020 10:45 AM EDT Narrative [facility] - 10/15/2020 3:00 PM EDT Results may be falsely decreased if patient taking Biotin. Nathanael Galvez MD LAB BLOOD ORDERABLES Final Result [facility]
[address] [place] [address], from Last 3 Months or Most Recently Relevant to Health Maintenance Insurance [facility] PPO Advance Directives * CPR (Attempt to Resuscitate) (Latest Code Status on File) Date Activated Date Inactivated Comments 05/13/2021 3:45 PM 05/15/2021 2:10 PM Question Answer Comments Code Status (Patient has no pulse and is not breathing): CPR (Attempt to Resuscitate) Medical Interventions (Patie nt has pulse or is breathing): Full Care Teams Technical Advisor Relationship Specialty Start Date End Date Provider, [place] [address] PCP - General 10/08/20
== END 2025-05-18 23:59 | disposition home or self-care (01) ==
LOC: RAD 10:32
PROVIDERS: PCP Physician Assistant; Visit Provider Obstetrics & Gynecology
DX: E28.2 Polycystic ovarian syndrome (principal); N85.2 Hypertrophy of uterus; N85.4 Malposition of uterus; R10.20 Pelvic and perineal pain unspecified side; R93.89 Abnormal findings on diagnostic imaging of other specified body structures
CPT/HCPCS: 76830